=== PATIENT | female | born 1970 | race Caucasian/White ===

== ENCOUNTER 2017-04-09 16:57 | Emergency (ER) | payer OTHER ==
[~2017-04-09] VITALS: Ht 167.6 cm; Wt 80.4 kg
[2017-04-09 16:59] VITALS: BP 152/92
== END 2017-04-09 18:02 | disposition home or self-care (01) ==
LOC: ED 17:27
DX: S81.812D Laceration without foreign body, left lower leg, subsequent encounter (principal); W11.XXXD Fall on and from ladder, subsequent encounter; Y92.89 Other specified places as the place of occurrence of the external cause; Y99.9 Unspecified external cause status
CPT/HCPCS: 99282